=== PATIENT | male | born 1945 | race Caucasian/White ===

== ENCOUNTER → 2017-03-18 | Outpatient (CLI) | payer MEDICARE, OTHER ==
[~2017-03-18] MED LIST: IOHEXOL 300 MG/ML 75 ML VIAL. IV ONE
[2017-03-18 12:24] LABS: CREATININE 0.9 mg/dL (0.7-1.3); GFR 82.7
--- NOTE | 2017-03-18 15:43 | RAD ---
CT abdomen/pelvis with and without contrast. 03/18/2017 at 1234 hours Indication: Hematuria Comparison: CT abdomen and pelvis 11/07/2011 Technique: Multiple axial CT images of the abdomen and pelvis were obtained before and after the administration of intravenous contrast (CT urogram). Coronal and sagittal reformats are provided. 75 mL of Omnipaque 300 was administered intravenously. Maximum intensity projection images and 3-D reconstructions of the genitourinary system are provided. Findings: Visualized portion of the lung bases are clear. Heart size is within normal limits. No suspicious hepatic masses are identified. Gallbladder is surgically absent. Splenic granuloma are noted. Bilateral adrenal glands are within normal limits. Pancreas is normal in appearance. The abdominal aorta is normal in course and caliber. A circumaortic left renal vein is identified. There are no pathologically enlarged lymph nodes in the abdomen or pelvis. There is angelica appearance of the small bowel mesentery (series 3, images 30-57). There is no free fluid within the abdomen or pelvis. There is no free intraperitoneal air. Small and large bowel are normal in caliber. No evidence for bowel obstruction. No pericolonic inflammatory changes are present. There is a 15 mm exophytic cyst in the superior pole the right kidney. Right renal parapelvic cysts are present. There is no hydronephrosis. No suspicious renal masses are identified. There is adequate opacification of the renal collecting systems and ureters without evidence for filling defect. There is partial opacification of the urinary bladder. There is marked trabeculation of the posterior urinary bladder wall with suggestion of small bladder diverticula. There is asymmetric prominence of the left seminal vesicles. Prostate is enlarged measuring 6.0 x 5.4 cm x 5.4 cm. Impression: 1. Marked trabeculated appearance of the posterior bladder wall with suggestion of tiny bladder diverticula. A definite mass is not seen, however findings are limited secondary to incomplete opacification of the urinary bladder as well as trabeculated appearance. Correlation with direct visualization is recommended. Findings could be secondary to chronic bladder outlet obstruction from markedly enlarged prostate. 2. No filling defects are identified in the renal collecting systems and ureters. No suspicious renal masses. Right renal parapelvic cysts are present. 3. Circumaortic left renal vein is identified. 4. There is angelica appearance of the small bowel mesentery. 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 Findings are stable from 11/07/2011. 5. Prostatomegaly. Correlate with prostate-specific antigen. PQRS Compliance Statement: One or more of the following individualized dose reduction techniques were utilized for this examination: 1. Automated exposure control 2. Adjustment of the mA and/or kV according to patient size 3. Use of iterative reconstruction technique
== END | disposition home or self-care (01) ==
LOC: CT 11:22
PROVIDERS: ATTEND Urology
DX: N28.1 Cyst of kidney, acquired (principal); N40.0 Benign prostatic hyperplasia without lower urinary tract symptoms; R97.20 Elevated prostate specific antigen [PSA]
CPT/HCPCS: 36415; 74178; 82565; Q9967

== ENCOUNTER → 2018-09-24 | Outpatient (CLI) | payer MEDICARE, OTHER | END | disposition home or self-care (01) | LOC: LAB 11:32 | PROVIDERS: ATTEND Urology | DX: R97.20 Elevated prostate specific antigen [PSA] (principal) | CPT/HCPCS: 84153; G0103 ==

== ENCOUNTER → 2019-10-24 | Outpatient (CLI) | payer MEDICARE, OTHER | END | disposition home or self-care (01) | LOC: LAB 11:27 | PROVIDERS: ATTEND Urology | DX: Z12.5 Encounter for screening for malignant neoplasm of prostate (principal); R97.20 Elevated prostate specific antigen [PSA] | CPT/HCPCS: G0103 ==

== ENCOUNTER → 2021-10-23 | Outpatient (CLI) | payer MEDICARE, OTHER | LOC: LAB 14:26 | PROVIDERS: ATTEND Urology | DX: R97.20 Elevated prostate specific antigen [PSA] (principal) | CPT/HCPCS: 36415; 84153; G0103 ==